=== PATIENT | male | born 1945 | race Caucasian/White ===

== ENCOUNTER 2022-08-26 09:53 | Outpatient (CLI) | payer OTHER, SELFPAY | END 2022-08-26 09:54 | disposition home or self-care (01) | LOC: ANHAUDIO 09:57 | PROVIDERS: PCP Family Medicine; Visit Provider Otolaryngology | DX: H90.3 Sensorineural hearing loss, bilateral (principal); H93.19 Tinnitus, unspecified ear | CPT/HCPCS: 92557; 92567 ==

== ENCOUNTER 2023-05-11 10:44 | Outpatient (CLI) | payer OTHER, SELFPAY ==
--- NOTE | ~2023-05-11 | MR_ITS ---
EXAMINATION: MR abdomen wo/w con DATE: 05/11/2023 11:55 INDICATION: Right-sided renal cyst TECHNIQUE: Magnetic resonance imaging (MRI) of the abdomen was performed without and with 20 mL Multi cecilia intravenous contrast. Sequences included coronal T2-weighted SS-FSE, coronal and axial FS 2D-F IESTA, axial STIR FSE, axial T2-weighted SS-FSE, axial T2-weighted FS SS-FSE, axial diffusion-weighte d SE, axial dual-echo T1-weighted FSPGR, and axial and coronal T1-weighted LAVA. Postcontrast axial T 1-weighted LAVA images were obtained in a time course. Postcontrast coronal T1-weighted LAVA images w ere obtained. COMPARISON: CT abdomen and pelvis dated 05/23/2012 FINDINGS: Heart size is normal. No pericardial or pleural effusion. Metallic magnetic field artifact associated with median sternotomy wires and mediastinal surgical clips, likely from prior coronary artery bypas s grafting. Liver, spleen, pancreas and bilateral adrenal glands are normal. Several <4 mm filling de fects on both the dependent and nondependent estrella of the otherwise normal-appearing gallbladder whic h could represent either gallstones and/or gallbladder polyps. There are multiple subcentimeter T2 hy perintense nonenhancing bilateral renal cysts the largest on the right measuring 8mm. At the anterior interpolar region of the right kidney is a heterogeneous T2 hypointense, heterogeneously mildly T1 h yperintense lesion measuring 2.9 cm maximal diameter which appears to demonstrate subtle enhancement on postcontrast images consistent with solid neoplasm such as renal cell carcinoma. Visualized portio n of the bowels are unremarkable. No pathologically enlarged abdominal or upper pelvic lymphadenopath y. Moderate lumbar spondylosis. There are few T1 hyperintense fat saturating hemangiomas in the lower thoracic spine. IMPRESSION: 1. 2.9 cm avidly enhancing mass at the anterior interpolar region of the right kidney consistent with renal cell carcinoma. Reviewed, dictated and finalized at location A. [employer]
== END 2023-05-11 10:45 ==
LOC: GOSHIMG 10:45
PROVIDERS: PCP Family Medicine; Visit Provider Urology
DX: N28.1 Cyst of kidney, acquired (principal)
CPT/HCPCS: 74183; A9577

== ENCOUNTER 2023-08-08 07:32 | Outpatient (CLI) | payer OTHER, SELFPAY ==
--- NOTE | ~2023-08-08 | MR_ITS ---
EXAMINATION: MR abdomen wo/w con DATE: 08/08/2023 08:47 INDICATION: Neoplasm of uncertain behavior of right kidney. TECHNIQUE: Magnetic resonance imaging (MRI) of the abdomen was performed without and with 20 mL Multi Petar intravenous contrast. COMPARISON: Abdomen MRI 05/11/2023, CT abdomen and pelvis 05/15/2012 FINDINGS: There is diffuse hepatic steatosis. The gallbladder is normal in size and contains a gallstone. The s pleen is normal. There is a 3 mm cyst in the head of the pancreas. The adrenal glands are normal. The re is cortical thinning of the kidneys. There are cysts in the kidneys measuring up to 8 mm on the ri ght. There is a 3.1 cm hypoenhancing mass in right kidney. There are no dilated loops of bowel. There are no pathologically enlarged lymph nodes. There is no free intraperitoneal fluid. IMPRESSION: 1. Stable 3.1 cm hypoenhancing mass in right kidney, consistent with renal cell carcinoma. 2. 3 mm cystic lesion of the pancreas. The differential diagnosis includes pseudocyst, intraductal pa pillary mucinous neoplasm (IPMN), mucinous cystic neoplasm (MCN), serous cystadenoma, and neuroendocr ine tumor. Abdomen MRI without and with contrast is recommended in 2 years. Reviewed, dictated and finalized at location A. FOUNDER AND DIRECTOR IMPRESSION: 1. Stable 3.1 cm hypoenhancing mass in right kidney, consistent with renal cell carcinoma. 2. 3 mm cystic lesion of the pancreas. The differential diagnosis includes pseu docyst, intraductal papillary mucinous neoplasm (IPMN), mucinous cystic neoplas m (MCN), serous cystadenoma, and neuroendocrine tumor. Abdomen MRI without and with contrast is recommended in 2 years.
== END 2023-08-08 07:33 | disposition home or self-care (01) ==
PROVIDERS: PCP Family Medicine; Visit Provider Urology
DX: D41.01 Neoplasm of uncertain behavior of right kidney (principal); K86.9 Disease of pancreas, unspecified
CPT/HCPCS: 74183; A9577

== ENCOUNTER 2023-08-31 08:14 | Outpatient (CLI) | payer OTHER, SELFPAY ==
--- NOTE | ~2023-08-31 | MR_ITS ---
MRI of the cervical spine Clinical History: Neck pain Technique: Axial T2-weighted and gradient images, and sagittal T1-weighted, T2-weighted, and STIR cristina ges were acquired. Findings: There is prominent bulging of the anterior and posterior margins of the C4 vertebral body, with minimal loss of height. There is probable partial fusion across the C3-C4 and C4-C5 disc spaces, with some mildly STIR hyperintense signal throughout these regions. No frankly hypointense T1 signal seen. No associated soft tissue mass evident. Remaining vertebral bodies appear essentially unremark able. No other abnormal marrow signal seen. At C2-C3, there is no disc bulge or herniation. No spinal canal stenosis, cord compression, or neural foraminal narrowing. At C3-C4, there is probable bilateral neural foraminal narrowing. There is mild canal stenosis and pr obable mild ventral cord flattening/compression at the C4 level related to the retropulsion of the C4 vertebral body. At C4-C5, there is bilateral neural foraminal narrowing. At C5-C6, there is minimal disc ossify complex. No canal stenosis or cord compression. There is proba ble mild bilateral neural foraminal narrowing. At C6-C7, there is minimal disc bulge. No spinal canal stenosis or cord compression. There is probabl e mild bilateral neural foraminal narrowing. No other paravertebral soft tissue abnormality evident. Impression: Abnormal appearance of the C4 vertebral body, with minimal loss of height and anterior and posterior convex bulging, with probable partial fusion across the C2-3-C4 and C4-C5 disc spaces. There is some mildly abnormal marrow signal throughout the vertebral bodies, though not frankly aggressive in appea hamida. This is favored to represent chronic mild compression fracture with associated disc changes, h owever an underlying more aggressive lesion is not completely excluded. Recommend repeat MR the cervi valerie spine with pre and postcontrast imaging including T1-weighted, T1 fat-sat, and T1 fat-sat postcon trast imaging to better exclude any underlying enhancing aggressive lesion. Mild canal stenosis and cord compression at the C4 level related to the retropulsion of the C4 verteb ral body. Additional multilevel mild neural foraminal narrowing, as detailed above. Reviewed, dictated and finalized at location M. N DIPPER Impression: Abnormal appearance of the C4 vertebral body, with minimal loss of height and a nterior and posterior convex bulging, with probable partial fusion across the C 2-3-C4 and C4-C5 disc spaces. There is some mildly abnormal marrow signal throu ghout the vertebral bodies, though not frankly aggressive in appearance. This i s favored to represent chronic mild compression fracture with associated disc c hanges, however an underlying more aggressive lesion is not completely excluded . Recommend repeat MR the cervical spine with pre and postcontrast imaging incl uding T1-weighted, T1 fat-sat, and T1 fat-sat postcontrast imaging to better ex clude any underlying enhancing aggressive lesion. Mild canal stenosis and cord compression at the C4 level related to the retropu lsion of the C4 vertebral body. Additional multilevel mild neural foraminal narrowing, as detailed above.
== END 2023-08-31 08:15 ==
PROVIDERS: PCP Family Medicine; Visit Provider Family Medicine
DX: M43.8X2 Other specified deforming dorsopathies, cervical region (principal); M48.02 Spinal stenosis, cervical region; R29.890 Loss of height
CPT/HCPCS: 72141

== ENCOUNTER 2023-09-12 08:43 | Outpatient (CLI) | payer OTHER, SELFPAY ==
--- NOTE | ~2023-09-12 | MR_ITS ---
EXAMINATION: MR cervical spine wo/w con DATE: 09/12/2023 10:04 INDICATION: Neck pain with abnormal findings of prior diagnostic imaging of the cervical spine. TECHNIQUE: Magnetic resonance imaging (MRI) of the cervical spine was performed without and with 20 m L Multihance intravenous contrast. Sequences included sagittal T2-weighted FSE, sagittal T2-weighted FS FSE, sagittal T1-weighted FSE, axial T2-weighted FSE, and axial T1-weighted SE. Postcontrast seque nces included sagittal T1-weighted FS FSE, and axial T1-weighted FS SE. COMPARISON: None FINDINGS: There is motion artifact on multiple sequences, greatest on the axial imaging. Again noted is circumf erential expansion of the C4 vertebral body despite minimal loss of vertebral body height. There is l oss of the low signal intensity in place both of the C4 vertebral body and involving portions of the adjacent C3 inferior and C5 superior endplates. The intervening disc spaces are also essentially abse nt. The vertebral body is filled with enhancing mass which appears to invade the adjacent C3 and C5 v ertebral bodies which would be most consistent with malignancy. Prominent low signal intensity likely bone island at the T3 vertebral body. There is suggestion of additional enhancing lesion at the righ t side of the C7 vertebral body. The posterior expansion results in moderate central canal stenosis m easuring 7 mm AP in the mid sagittal plane with mild deformation of the cord which appears slightly f lattened in the AP dimension with indentation of the ventral surface with compensatory increased with of the cord which fills the thecal space with effacement of the surrounding CSF signal. The cord sig nal appears to remain normal on the sequence is not affected by motion artifact. Aside from the expansion of the C4 vertebral body the bone alignment remains normal. Remaining verteb ral body heights are normal. Moderate disc height loss with disc bulges resulting in mild central can al stenosis at C5-C6 and C6-C7 Bone alignment is otherwise normal. IMPRESSION: 1. Enhancing expansile mass in the C4 vertebral body which has eroded across the adjacent endplates i nvading the adjacent C3 and C5 vertebral bodies with obliteration of the intervening disc spaces with out significant associated vertebral body height loss or surrounding inflammation which would strongl y favor malignancy over infection. Malignancy could be either primary such as plasmacytoma/multiple m yeloma or metastatic such as renal cell carcinoma this patient with known enhancing right renal mass suspicious for renal cell carcinoma. Recommend neurosurgical consultation. 2. Suggestion of a possible second enhancing bone lesion at the right side of the C7 vertebral body. Consider bone scan to assess for any additional bone lesions. Reviewed, dictated and finalized at location A. IMPRESSION: 1. Enhancing expansile mass in the C4 vertebral body which has eroded across th e adjacent endplates invading the adjacent C3 and C5 vertebral bodies with obli teration of the intervening disc spaces without significant associated vertebra l body height loss or surrounding inflammation which would strongly favor malig johana over infection. Malignancy could be either primary such as plasmacytoma/m ultiple myeloma or metastatic such as renal cell carcinoma this patient with kn own enhancing right renal mass suspicious for renal cell carcinoma. Recommend n eurosurgical consultation. 2. Suggestion of a possible second enhancing bone lesion at the right side of t he C7 vertebral body. Consider bone scan to assess for any additional bone lesi ons.
== END 2023-09-12 08:44 ==
LOC: GOSHIMG 08:45
PROVIDERS: PCP Family Medicine; Visit Provider Family Medicine
DX: R93.7 Abnormal findings on diagnostic imaging of other parts of musculoskeletal system (principal)
CPT/HCPCS: 72156; A9577

== ENCOUNTER 2023-10-23 09:17 | Outpatient (CLI) | payer OTHER, SELFPAY ==
--- NOTE | ~2023-10-23 | US_ITS ---
EXAMINATION:US venous doppler LE LT INDICATION:Left lower extremity pain TECHNIQUE: Multiple grayscale, color flow and Doppler images of the left lower extremity deep venous systems were obtained and reviewed. COMPARISON:No prior studies for comparison. FINDINGS: The common femoral, superficial femoral and popliteal veins demonstrate normal respiratory variation, augmentation and compressibility. Color flow is also seen within the posterior tibial, pe roneal, greater saphenous and profunda veins. IMPRESSION: 1: No lower extremity deep venous thrombosis. Reviewed, dictated and finalized at location B.
--- NOTE | ~2023-10-23 | CT_ITS ---
EXAMINATION: CTA chest PE protocol DATE: 10/23/2023 16:03 INDICATION: Other specified symptoms and signs involving the circulatory system. TECHNIQUE: Computed tomography angiography (CTA) of the chest was performed with 100 mL Omnipaque-350 intravenous contrast timed to evaluate the pulmonary arteries. Coronal maximum intensity projection 3D-reconstructions were created by the technologist. Automated exposure control and iterative reconst ruction technique were employed. The dose-length product was 847.67 mGy-cm. COMPARISON: None. FINDINGS: The lungs demonstrate mild atelectasis. There is mild elevation of left hemidiaphragm. No p leural effusion. The heart size is normal. There are coronary artery calcifications. There are change s of coronary artery bypass grafting. No pericardial effusion. There are acute pulmonary emboli in th e lower lobes. There are gallstones in the gallbladder, which is normal in size. There are changes of posterior fusion procedure involving cervicothoracic spine. There is a benign bone island in T3 vert ebral body. There is mild chronic anterior wedging of multiple vertebral bodies. IMPRESSION: 1. Acute pulmonary emboli in the lower lobes. Reviewed, dictated and finalized at location A.
[2023-10-23 10:56] LABS: D Dimer 2.38 ug/mL (<0.48)
[2023-10-23 15:54] LABS: Estimated Glomerular Filt Rate > 60
== END 2023-10-23 09:18 | disposition home or self-care (01) ==
PROVIDERS: PCP Family Medicine; Visit Provider Nurse Practitioner Family
DX: R09.89 Other specified symptoms and signs involving the circulatory and respiratory systems (principal); I26.99 Other pulmonary embolism without acute cor pulmonale; M79.89 Other specified soft tissue disorders; R23.8 Other skin changes; Z98.890 Other specified postprocedural states
CPT/HCPCS: 36415; 71275; 85380; 93971; Q9967

== ENCOUNTER 2023-10-23 16:41 | Inpatient (IN) | payer MEDICARE, OTHER, SELFPAY ==
[2023-10-23] VITALS (13 sets, daily range): BP systolic 114–134; BP diastolic 67–76; PULSE 72–85; RESP 13–22; TEMP 36.6; O2SAT 93–97
--- NOTE | ~2023-10-23 | US_ITS ---
EXAMINATION:US venous doppler LE LT INDICATION:Left lower extremity pain and swelling. TECHNIQUE: Multiple grayscale, color flow and Doppler images of the lower extremity deep venous syste ms were obtained and reviewed. COMPARISON:10/23/2023 FINDINGS: The common femoral, superficial femoral and popliteal veins demonstrate normal respiratory variation, augmentation and compressibility. Color flow is also seen within the posterior tibial, pe roneal, and profunda veins. There is superficial venous thrombosis of the left greater saphenous vein . IMPRESSION: 1: No lower extremity deep venous thrombosis. 2: Superficial venous thrombosis left greater saphenous vein. Reviewed, dictated and finalized at location B.
--- NOTE | 2023-10-23 17:58 | ECG_ITS ---
SEE SCANNED COPY FOR CONFIRMED REPORT. MTDD
--- NOTE | 2023-10-23 18:11 | ED.GENADULT ---
HPI - General Adult General Chief complaint: Recheck/Abnormal Lab/Rx Stated complaint: I have blood clots in my lungs Time Seen by Provider: 10/23/23 18:01 History of Present Illness HPI narrative: 78-year-old male presents to the emergency department for evaluation of worsening exertional shortness of breath. 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 Patient has recently restarted his aspirin and Plavix. Patient noticed he had some erythema on his left medial thigh so his convinced him he needed to be evaluated for a DVT. Patient had outpatient imaging performed which was negative for DVT of the lower extremities but was positive for bilateral lower lobe pulmonary emboli. Related Data Home Medications Medication Instructions Recorded Confirmed clopidogrel 75 mg tablet 75 mg PO DAILY 04/30/20 10/23/23 fenofibrate 160 mg tablet 160 mg PO DAILY 04/30/20 10/23/23 cetirizine 10 mg tablet (Zyrtec) 10 mg PO DAILY PRN Allergy Symptoms 10/12/20 10/23/23 finasteride 5 mg tablet 5 mg PO DAILY 05/03/21 10/23/23 rosuvastatin 40 mg tablet 40 mg PO QHS 05/03/21 10/23/23 metoprolol succinate 25 mg 37.5 mg PO BID 11/01/21 10/23/23 tablet,extended release 24 hr aspirin 81 mg tablet,delayed 81 mg PO DAILY 05/09/22 10/23/23 release (Adult Low Dose Aspirin) cholecalciferol (vitamin D3) 25 25 mcg PO DAILY 05/09/22 10/23/23 mcg (1,000 unit) capsule multivitamin 1 tablet PO DAILY 05/09/22 10/23/23 fluticasone furoate 27.5 2 spray intranasal DAILY PRN 11/07/22 10/23/23 mcg/actuation nasal Allergy Symptoms spray,suspension (Flonase Sensimist) Allergies Allergy/AdvReac Type Severity Reaction Status Date / Time isosorbide Allergy Intermediate Hives Verified 10/23/23 18:22 ticagrelor [From Brilinta] Allergy Mild Rash Verified 10/23/23 18:22 vancomycin Allergy Unknown Verified 10/23/23 18:23 Review of Systems Review of Systems: All systems reviewed & are unremarkable except as noted in HPI and below PMFSH Past Medical History Medical History BPH loc w/o ur obs/LUTS CAD in [place] artery CKD (chronic kidney disease) stage 3, GFR 30-59 ml/min Heart attack (~2000) Had another heart attack in 04/2018 Hyperlipidemia Hypertension Seasonal allergies Varicose veins of left lower extremity Vitamin D deficiency Surgical History Surgical History History of hemorrhoidectomy 05/2014 History of umbilical hernia repair 01/2009 Hx of coronary artery bypass surgery 01/2003 Stented coronary artery (~2000) 2000, 2016,2018 Family History Family History Father Cerebrovascular accident Family history of coronary artery disease Family history of congestive heart failure Family history of heart disease in male family member before age 55 Mother Carcinoma of colon Family history of coronary artery disease Grandparent Family history of glaucoma Other Family history of malignant neoplasm Social History Social History Smoking status: Former smoker Smoking end date: 06/26/72 Alcohol intake: never Substance use: never Substance use type: does not use Do You Feel Safe in your Home?: No Lack of Transportation: No Lack of Food: Never True Current Housing: I Have Housing Concerned About Future Housing: No Difficulty Paying Gas/Electric Bills: No Difficulty Paying for Meds: No Currently Unemployed: No Education: Bachelor's Degree Difficulty w/ Childcare or Family Care: No Gender identity (if verbalized by the patient): Male Spiritual care concerns: No Exam Narrative: APPEARANCE: Well appearing, no pain, no distress, well-nourished. HEAD: normocephalic, atraumatic. EYES: PERRLA/EOMI, conjunctivae clear. NOSE: Normal
[2023-10-23 18:26] LABS: Basophils Absolute Auto 0.1 K/mm3 (0.0-0.1); Eosinophils Absolute Auto 0.5 K/mm3 (0-0.3); Eosinophils Percent Auto 5.4 % (0-4.4); Hematocrit 43.4 % (42.0-52.0); Immature Granulocyte Absolute 0.14 K/mm3 (0.00-0.031); Immature Granulocyte Percent A 1.6 % (0-0.5); Lymphocytes Absolute Auto 1.46 K/mm3 (0.9-3.2); Lymphocytes Percent Auto 16.2 % (18.3-44.2); Mean Corpuscular HGB Conc 32.3 g/dl (32-36); Mean Corpuscular Hemoglobin 29.4 pg (26-34); Mean Corpuscular Volume 91.2 fl (80-100); Mean Platelet Volume 9.9 fl (7.4-10.4); Monocytes Absolute Auto 0.9 K/mm3 (0.1-0.6); Monocytes Percent Auto 10.1 % (2.6-8.5); Neutrophils Absolute Auto 5.9 K/mm3 (1.3-6.7); Neutrophils Percent Auto 65.7 % (45.5-73.1); Platelet Count Result 278 k/mm3 (150-375); Red Blood Count 4.76 M/mm3 (4.6-6.20)
[2023-10-23 18:36] LABS: Alanine Aminotransferase 19 U/L (6-50); Albumin Level 3.7 g/dL (3.5-5.1); Alkaline Phosphatase 124 U/L (38-126); Anion Gap 7 mmol/L (4-12); Aspartate Amino Transferase 33 U/L (17-59); Bilirubin,Total 1.6 mg/dL (0.2-1.3); Blood Urea Nitrogen 14 mg/dL (9-20); Calcium 9.4 mg/dL (8.4-10.2); Carbon Dioxide 23 mmol/L (22-30); Chloride 105 mmol/L (98-107); Estimated CRCL calculation 81 ml/min; Estimated Glomerular Filt Rate > 60; Glucose 108 mg/dL (65-110); Potassium 3.8 mmol/L (3.4-5.0); Sodium 135 mmol/L (137-145)
[2023-10-23 18:39] LABS: INR 1.1; Prothrombin Time 14.9 Seconds (11.1-14.7)
[2023-10-23 18:40] LABS: Partial Thromboplastin Time 36.7 Seconds (22.3-36.8)
[2023-10-23 18:48] LABS: NT Pro B Type Natriuretic Pept 759 pg/mL (19.9-100); Troponin I < 0.012 ng/mL (0.000-0.034)
[2023-10-23] MEDS: HEPARIN SODIUM 5,000 UNITS/ML VIAL 6500 UNITS IV PUSH (19:04)
[2023-10-23] MEDS: HEPARIN SOD/D5W 100 UNITS/ML 25,000 UNITS/250 ML BAG 15 UNITS IV CONT (19:06)
--- NOTE | 2023-10-23 19:13 | PC.NURSE ---
Report given to Donita MORALEZ, all questions answered
--- NOTE | 2023-10-23 21:48 | ADMGEN ---
This patient, Edwin Govea, was admitted to Medical Room 246-01. Patient/family oriented to hospital policies and general routines including ID bracelet, bed and alarms, visiting hours, pain management, procedures, bathroom and other care routines, personal items, smoking policy, room service/diet, and visiting hours. Information on how to activate the Rapid Response Team has been discussed. Patient/Family are encouraged to report perceived risks to care and to ask questions if they do not understand what they are told or what they should do.
--- NOTE | 2023-10-23 23:07 | PM.IMHP ---
H&P: HPI History of Present Illness Date/Time: 10/23/23 23:00 Chief Complaint: Chest CT showed pulmonary embolism. Narrative: This is a 78-year-old male presented to the emergency department at the instruction of his primary care provider for further evaluation after an outpatient chest CTA showed evidence of pulmonary emboli. The patient's medical history is significant for coronary artery disease, hypertension, hyperlipidemia, benign prostatic hyperplasia, and chronic kidney disease. More recently he was having issues with neck pain an MRI of the cervical spine in mid to late August showed an enhancing expansile mass in the C4 vertebral body and other findings. He is now status post C2-T2 posterior cervicothoracic fusion with left C4-C5 foraminotomy and resection of C4 mass. 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 He has been started on systemic therapy per Dr. Rafale Ruiz and he has been referred to Radiation Oncology to see if he would benefit from radiation. In any event, he was seen at his doctor's office today for evaluation of left leg discoloration and swelling and was sent for lower extremity venous Doppler ultrasounds and chest CTA. The ultrasounds were negative for DVT however chest CTA showed evidence of acute pulmonary emboli in the lower lobes for which he was sent to the ED. He denies syncope, near syncope, chest pain, pleuritic pain, palpitations, and shortness of breath. No prior history of venous thromboembolism. He was afebrile on arrival to the ED with stable vital signs. SpO2 has been in upper 90s on room air. Troponin was < 0.012 and proBNP was 759. He has been started on a heparin drip and is being admitted in this setting. Review of Systems Review of Systems: 12 systems were reviewed and are negative except for as per HPI. 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 Seasonal allergies Varicose veins of left lower extremity Vitamin D deficiency Surgical History Surgical History (Updated 10/23/23 @ 23:16 by Jinny Wall PA-C) History of coronary artery bypass graft (01/2003) History of coronary artery stent placement 2000, 2016, 2018 History of hemorrhoidectomy (05/2014) History of spinal fusion C2-T2 posterior cervicothoracic fusion with left C4-C5 foraminotomy and resection of vertebral mass. History of umbilical hernia repair (01/2009) Family History Family History Father Cerebrovascular accident Family history of coronary artery disease Family history of congestive heart failure Family history of heart disease in male family member before age 55 Mother Carcinoma of colon Family history of coronary artery disease Grandparent Family history of glaucoma Other Family history of malignant neoplasm Social History Social History (Updated 10/23/23 @ 23:17 by Jinny Wall PA-C) Social History: Surrogate medical decision maker: Shira Govea, spouse. Code status: Full code. Smoking status: Former smoker Smoking end date: 06/26/72 Alcohol intake: never Substance use: never Substance use type: does not use Do You Feel Safe in your Home?: No Lack of Transportation: No Lack of Food: Never True Current Housing: I Have Housing Concerned About Future Housing: No Difficulty Paying Gas/Electric Bills: No Difficulty Paying for Meds: No Currently Unemployed: No Education: Bachelor's Degree Difficulty w/ Childcare or Family Care: No Spiritual care concerns: No Meds Home Medications and Allergies Home Medications Medication Instructions Recorded Confirmed
[2023-10-24] VITALS (14 sets, daily range): BP systolic 110–127; BP diastolic 54–70; PULSE 66–86; RESP 16–21; TEMP 36.5–37.1; O2SAT 95–100; BMI 36.0
[2023-10-24] MEDS: METOPROLOL TARTRATE 12.5 MG TABLET PO ×3 (00:12→21:54)
[2023-10-24] MEDS: ROSUVASTATIN 10 MG TABLET 40 MG PO ×2 (00:13→21:53)
[2023-10-24] MEDS: METOPROLOL TARTRATE 25 MG TABLET PO ×3 (00:13→21:54)
[2023-10-24] MEDS: ceFAZolin 1 GM/NS 50 ML 1 GM/50 ML BAG IVPB ×3 (00:16→17:24)
[2023-10-24 01:33] LABS: Partial Thromboplastin Time 189.1 Seconds (22.3-36.8)
[2023-10-24] MEDS: DIPHENHYDRAMINE 1%/ZINC 0.1% CREAM 30 GM TUBE 1 APPLIC TOPICAL (05:02)
--- NOTE | 2023-10-24 07:58 | PM.IMPN ---
Progress Note: A&P Assessment and Plan (1) Pulmonary emboli: Code(s): I26.99 - Other pulmonary embolism without acute cor pulmonale Status: Acute Assessment and Plan: 10/24/23: CTA of the chest shows acute PE in the lower lobes Venous Doppler was negative for DVT Continue heparin drip (2) Cellulitis of left thigh: Code(s): L03.116 - Cellulitis of left lower limb Status: Acute Assessment and Plan: 10/24/23: Continue cefazolin (3) Hyperlipidemia: Qualifiers: Hyperlipidemia type: unspecified Qualified Code(s): E78.5 - Hyperlipidemia, unspecified Code(s): E78.5 - Hyperlipidemia, unspecified Status: Chronic Assessment and Plan: 10/24/23: Continue rosuvastatin (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 Rafael Ruiz, undergoing radiation treatment for stage IV renal carcinoma (5) Benign prostatic hyperplasia: Code(s): N40.0 - Benign prostatic hyperplasia without lower urinary tract symptoms Status: Chronic Assessment and Plan: 10/24/23: Of note Time Spent With Patient Time with patient: Greater than 35 minutes Subjective Date/time seen: 10/24/23 07:58 Interval history: This is a 78 year old male with a significant past medical history of stage IV renal cell carcinoma undergoing radiation with Dr. Rafael Ruiz who presented to the hospital with left leg discoloration and swelling. Work up in the hospital included a venous Dopplers which were negative for DVT. He also had a chest CTA which showed acute pulmonary emboli in the lower lobes. He was started on a heparin drip. He is currently supratherapeutic on labs this morning PTT was 189.1. Examination today patient is alert oriented x3, lying. Family is at bedside. Labs today show a white blood cell count of 10.6, PTT 83.5, bilirubin 1.7, liver enzymes and kidney function normal. He denies any fever, chills, nausea, vomiting diarrhea, pain, chest pain shortness a breath. Review of Systems Review of Systems: All systems reviewed & are unremarkable except as noted in HPI and below Constitutional: Constitutional: Reports as per HPI and Reports no additional constitutional complaints Eyes: Eyes: Reports as per HPI and Reports no additional eye complaints ENT: Reports system reviewed and no additional complaints, except as documented and Reports as per HPI Cardiovascular: Cardiovascular: Reports as per HPI and Reports no additional cardiovascular complaints Respiratory: Respiratory: Reports as per HPI and Reports no additional respiratory complaints Gastrointestinal: Gastrointestinal: Reports as per HPI and Reports no additional gastrointestinal complaints Genitourinary: Genitourinary: Reports no additional male genitourinary complaints and Reports as per HPI Musculoskeletal: Musculoskeletal: Reports no additional musculoskeletal complaints and Reports as per HPI Integumentary/Breasts: Skin/Breast: Reports system reviewed and no additional complaints, except as docu and Reports as per HPI Neurologic: Reports system reviewed and no additional complaints, except as documented and Reports as per HPI Psychiatric: Psychiatric: Reports no additional psychiatric complaints and Reports as per HPI Exam Narrative: General: In no acute distress, well nourished Head: atraumatic, no encephalopathy Eyes: EOMI, PERRLA, sclera clear ENT: moist mucous membranes, nasal passages clear Neck: supple, no JVD, no adenopathy, trachea midline Cardiac: Normal S1 and S2. No murmur, gallops or friction rubs, peripheral pulses intact. Respiratory: Lungs clear to auscultation, no adventitious lung sounds, currently on room air Gastrointestinal: soft, non-distended, non-tender, normoactive bowel sounds. : voiding without difficulty. Extremit
[2023-10-24 08:49] LABS: Basophils Absolute Auto 0.1 K/mm3 (0.0-0.1); Basophils Percent Auto 0.5 % (0.2-1.2); Eosinophils Absolute Auto 0.8 K/mm3 (0-0.3); Eosinophils Percent Auto 7.9 % (0-4.4); Hematocrit 44.4 % (42.0-52.0); Hemoglobin 14.2 g/dL (14.0-18.0); Immature Granulocyte Absolute 0.14 K/mm3 (0.00-0.031); Immature Granulocyte Percent A 1.3 % (0-0.5); Lymphocytes Absolute Auto 0.76 K/mm3 (0.9-3.2); Lymphocytes Percent Auto 7.1 % (18.3-44.2); Mean Corpuscular Volume 90.8 fl (80-100); Mean Platelet Volume 10.3 fl (7.4-10.4); Monocytes Absolute Auto 0.7 K/mm3 (0.1-0.6); Monocytes Percent Auto 6.4 % (2.6-8.5); Neutrophils Absolute Auto 8.2 K/mm3 (1.3-6.7); Neutrophils Percent Auto 76.8 % (45.5-73.1); Platelet Count Result 305 k/mm3 (150-375); Red Blood Count 4.89 M/mm3 (4.6-6.20); Red Cell Distribution Width 15.3 % (11.5-14.5); White Blood Count 10.6 K/mm3 (4.5-10.0)
[2023-10-24 09:01] LABS: Partial Thromboplastin Time 83.5 Seconds (22.3-36.8)
[2023-10-24 09:04] LABS: Alanine Aminotransferase 17 U/L (6-50); Albumin Level 3.4 g/dL (3.5-5.1); Alkaline Phosphatase 113 U/L (38-126); Anion Gap 5 mmol/L (4-12); Aspartate Amino Transferase 28 U/L (17-59); Bilirubin,Total 1.7 mg/dL (0.2-1.3); Blood Urea Nitrogen 13 mg/dL (9-20); Calcium 9.1 mg/dL (8.4-10.2); Carbon Dioxide 25 mmol/L (22-30); Chloride 107 mmol/L (98-107); Estimated CRCL calculation 81 ml/min; Estimated Glomerular Filt Rate > 60; Glucose 116 mg/dL (65-110); Potassium 3.9 mmol/L (3.4-5.0); Sodium 137 mmol/L (137-145)
[2023-10-24] MEDS: FINASTERIDE 5 MG TABLET PO (09:05)
[2023-10-24] MEDS: CHOLECALCIFEROL 1,000 UNITS TABLET 1000 UNITS PO (09:06)
[2023-10-24] MEDS: MULTIVITAMINS THERAPEUTIC TAB (*BKC) 1 TABLET PO (09:09)
[2023-10-24] MEDS: TAMSULOSIN HCL 0.4 MG CAPSULE PO (09:09)
[2023-10-24] MEDS: CLOPIDOGREL BISULFATE 75 MG TABLET PO (09:10)
[2023-10-24] MEDS: FENOFIBRATE 160 MG TABLET PO (09:10)
--- NOTE | 2023-10-24 14:28 | PCCCNOTE ---
On 10/24/23, the student, Kim Alonso, provided care and completed [facility] documentation on this patient. I have reviewed the student's documentation and agree with the findings.
[2023-10-24] MEDS: HEPARIN SOD/D5W 100 UNITS/ML 25,000 UNITS/250 ML BAG 12 UNITS IV CONT (15:43)
[2023-10-24 16:38] LABS: Partial Thromboplastin Time 78.4 Seconds (22.3-36.8)
[2023-10-24 20:15] LABS: Glucose Point of Care 124 mg/dl (65-105)
[2023-10-25] VITALS (7 sets, daily range): BP systolic 120–125; BP diastolic 52–57; PULSE 64–72; RESP 16; TEMP 36.1–36.3; O2SAT 92–96
[2023-10-25] MEDS: ceFAZolin 1 GM/NS 50 ML 1 GM/50 ML BAG IVPB ×2 (00:08→07:58)
[2023-10-25 05:11] LABS: Partial Thromboplastin Time 90.7 Seconds (22.3-36.8)
[2023-10-25] MEDS: FINASTERIDE 5 MG TABLET PO (08:01)
[2023-10-25] MEDS: TAMSULOSIN HCL 0.4 MG CAPSULE PO (08:01)
[2023-10-25] MEDS: CLOPIDOGREL BISULFATE 75 MG TABLET PO (08:01)
[2023-10-25] MEDS: FENOFIBRATE 160 MG TABLET PO (08:01)
[2023-10-25] MEDS: MULTIVITAMINS THERAPEUTIC TAB (*BKC) 1 TABLET PO (08:01)
[2023-10-25] MEDS: METOPROLOL TARTRATE 25 MG TABLET PO (08:02)
[2023-10-25] MEDS: CHOLECALCIFEROL 1,000 UNITS TABLET 1000 UNITS PO (08:02)
[2023-10-25] MEDS: METOPROLOL TARTRATE 12.5 MG TABLET PO (08:02)
[2023-10-25] MEDS: APIXABAN 5 MG TABLET 10 MG PO (10:20)
--- NOTE | 2023-10-25 12:43 | PM.DS ---
DS: Admitting Diagnosis Discharge Date 10/25/23 Admitting Diagnosis Pulmonary embolism Cellulitis of left thigh Clear cell adenocarcinoma of the right kidney BPH Coronary artery disease Hyperlipidemia DS: Discharge Diagnosis Discharge Diagnosis (1) Pulmonary emboli: Code(s): I26.99 - Other pulmonary embolism without acute cor pulmonale Status: Acute (2) Cellulitis of left thigh: Code(s): L03.116 - Cellulitis of left lower limb Status: Acute (3) Hyperlipidemia: Qualifiers: Hyperlipidemia type: unspecified Qualified Code(s): E78.5 - Hyperlipidemia, unspecified Code(s): E78.5 - Hyperlipidemia, unspecified Status: Chronic (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 Rafael Ruiz who presented to the hospital with left leg discoloration and swelling. Work up in the hospital included a venous Dopplers which were negative for DVT.? He also had a chest CTA which showed acute pulmonary emboli in the lower lobes.? He was started on a heparin drip.? He is currently supratherapeutic on labs this morning PTT was 189.1.Examination today patient is alert oriented x3, lying.? Family is at bedside.? Labs today show a white blood cell count of 10.6, PTT 83.5, bilirubin 1.7, liver enzymes and kidney function normal.? He denies any fever, chills, nausea, vomiting diarrhea, pain, chest pain shortness a breath.? 10/25/23: Patient has remained therapeutic on heparin infusion x3 lab draws. We will go ahead and transition him over to Eliquis today per PE protocol. He denies any new complaints today. He is stable for discharge today. He will need to follow up with his primary care physician in 1 week. Final diagnosis: Pulmonary embolism, superficial venous thrombosis left thigh, renal cell carcinoma Status at Discharge Cognitive/behavioral status at discharge: Alert oriented x4 Functional status at discharge: independent ambulation Overall status at discharge: patient is progressing back to baseline Time Spent with Patient Time attestation: Total time spent providing and/or coordinating discharge services: Time spent: Greater than 30 minutes Exam Narrative: General: In no acute distress, well nourished Head: atraumatic, no encephalopathy Eyes: EOMI, PERRLA, sclera clear ENT: moist mucous membranes, nasal passages clear Neck: supple, no JVD, no adenopathy, trachea midline Cardiac: Normal S1 and S2. RRR No murmur, gallops or friction rubs, peripheral pulses intact. Respiratory: Lungs clear to auscultation, no adventitious lung sounds, currently on room air Gastrointestinal: soft, non-distended, non-tender, normoactive bowel sounds. : voiding without difficulty. Extremities: moves all extremities well, no edema, good ROM, strength 5/5 Spine: C-collar in place Skin: Left inner thigh red, warm to the touch, with hardened area under the surface of the skin Neuro: Alert and oriented x4, cranial nerves intact, no neuro deficits. Psych: normal mood, normal affect, interactive DS: Data Data Completed and Pending Completed studies during hospitalization: Venous Doppler study x2, chest CTA Pending studies at discharge: None Labs on day of discharge: Labs from last 24 hours 10/25/23 10/24/23 10/24/23 04:23 20:13 16:03 APTT 90.7 H 78.4 H POC Capillary Glucose 124 H Procedures/Treatm
== END 2023-10-25 13:50 | disposition home or self-care (01) | DRG 176 ==
LOC: ANHED 18:55 → ANH2MED 20:01
PROVIDERS: Internal Medicine; Physician Assistant; Admitting Provider Internal Medicine; Emergency Provider Emergency Medicine; PCP Family Medicine; Visit Provider Nurse Practitioner Acute Care
DX: I26.99 Other pulmonary embolism without acute cor pulmonale (principal); L03.116 Cellulitis of left lower limb; C64.1 Malignant neoplasm of right kidney, except renal pelvis; I82.812 Embolism and thrombosis of superficial veins of left lower extremity; E78.5 Hyperlipidemia, unspecified; N40.0 Benign prostatic hyperplasia without lower urinary tract symptoms; I25.10 Atherosclerotic heart disease of native coronary artery without angina pectoris; I12.9 Hypertensive chronic kidney disease with stage 1 through stage 4 chronic kidney disease, or unspecified chronic kidney disease; N18.30 Chronic kidney disease, stage 3 unspecified; Z95.5 Presence of coronary angioplasty implant and graft; Z95.1 Presence of aortocoronary bypass graft; Z87.891 Personal history of nicotine dependence; Z98.1 Arthrodesis status
CPT/HCPCS: 36415; 71275; 80053; 82948; 83880; 84484; 85025; 85380; 85610; 85730; 93005; 93971; 96365; 96366; 99291; A9270; G0378; J0690; J1644; Q9967

== ENCOUNTER 2023-10-31 10:15 | Outpatient (CLI) | payer OTHER, SELFPAY ==
--- NOTE | ~2023-10-31 | MR_ITS ---
EXAMINATION: MR abdomen wo/w con DATE: 10/31/2023 12:38 INDICATION: Neoplasm of uncertain behavior of the kidney TECHNIQUE: Magnetic resonance imaging (MRI) of the abdomen was performed without and with 20 mL Multi cecilia intravenous contrast. Sequences included coronal T2-weighted SS-FSE, coronal and axial FS 2D-F IESTA, axial STIR FSE, axial T2-weighted SS-FSE, axial T2-weighted FS SS-FSE, axial diffusion-weighte d SE, axial dual-echo T1-weighted FSPGR, and axial and coronal T1-weighted LAVA. Postcontrast axial T 1-weighted LAVA images were obtained in a time course. Postcontrast coronal T1-weighted LAVA images w ere obtained. COMPARISON: MRI dated 08/08/2023 FINDINGS: Heart size is normal. No pericardial or pleural effusion. Unchanged small region of atelectasis/scarr ing at the posterior sulcus of the basilar left lower lobe which can be seen on CT dated 10/23/2023. T here are few small low signal intensity gallstones in the otherwise normal-appearing gallbladder with no dilation, gallbladder wall thickening or pericholecystic inflammatory change to suggest acute cho lecystitis. Mild diffuse hepatic steatosis with mild signal dropout on opposed phase imaging. Unchang ed 3 mm cyst at the head of the otherwise normal pancreas. Bilateral adrenal glands are normal. There are multiple bilateral small nonenhancing renal cysts including a combination of typical T2 hyperint ense simple cysts and T1 hyperintense, less T2 hyperintense proteinaceous/hemorrhagic cyst. No interv al change in a T2 hypointense, hypoenhancing mass at the right kidney consistent with renal cell carc inoma. Visualized portions of bowels are normal. No pathologically enlarged abdominal or upper pelvic lymphadenopathy. There are a few T1 hyperintense fat saturating hemangiomas in the lower thoracic sp ine. Moderate lumbar spondylosis. IMPRESSION: 1. Stable 3.1 cm hypoenhancing right renal mass consistent with renal cell carcinoma. 2. Cholelithiasis. 3. Persistent atelectasis at the posterior sulcus of the basilar left lower lobe. 4. Unchanged 3 mm cyst lesion at the head of the pancreas with differential provided on the prior alma dy. 2 year follow-up abdomen MRI with and without contrast is recommended. Reviewed, dictated and finalized at location A. IMPRESSION: 1. Stable 3.1 cm hypoenhancing right renal mass consistent with renal cell carc inoma. 2. Cholelithiasis. 3. Persistent atelectasis at the posterior sulcus of the basilar left lower lob e. 4. Unchanged 3 mm cyst lesion at the head of the pancreas with differential pro vided on the prior study. 2 year follow-up abdomen MRI with and without contras t is recommended.
== END 2023-10-31 10:16 ==
LOC: MICIMG 10:16
PROVIDERS: PCP Internal Medicine Medical Oncology; Visit Provider Urology
DX: D41.01 Neoplasm of uncertain behavior of right kidney (principal); K80.20 Calculus of gallbladder without cholecystitis without obstruction; R91.8 Other nonspecific abnormal finding of lung field; K86.2 Cyst of pancreas
CPT/HCPCS: 74183; A9577

== ENCOUNTER 2023-12-27 17:56 | Emergency (ER) | payer OTHER, SELFPAY ==
--- NOTE | ~2023-12-27 | XR_ITS ---
XR chest 2V Ordering provider: Enedelia Blair APRN History: 78 years Male with . COUGH . Comparison: September 03, 2018 FINDINGS: MEDIASTINUM: The cardiac silhouette is not enlarged. Changes in the mediastinum and sternum. LUNGS: No infiltrates, effusions or pneumothorax. Slightly prominent markings in the right lower lobe. OTHER: No free air under the diaphragm. Postoperative changes in the cervical spine. IMPRESSION: No acute cardiopulmonary pathology. Reviewed, dictated and finalized at location A.
--- NOTE | ~2023-12-27 | CT_ITS ---
CT soft tissue neck w con Ordering provider: Saray Goldstein PA-C History: 78 years Male with . dysphagia, sob, recent neck surgery . Comparison: None. Technique: CT soft tissues neck was performed with contrast. . Automated exposure control and iterat sosa reconstruction technique were employed. The dose-length product was 604.27 mGy-cm. 75 mL Omnipaqu e 350 was given IV. Findings: LOWER HEAD: The visualized brain parenchyma, optic globes/orbits and mastoids are normal. The visua lized paranasal sinuses are well aerated. SALIVARY GLANDS: Normal. THYROID: Normal. SUPRAHYOID DEEP SPACES: Normal. CAROTID ARTERIES: Normal. JUGULAR VEINS: Normal. TONSILS: Normal. ORAL CAVITY: Partially obscured by dental amalgam but normal as visualized. PHARYNX, LARYNX AND TRACHEA: Patent and normal. No prevertebral soft tissue swelling. SUPERFICIAL SOFT TISSUES: Normal. No lymphadenopathy or neck mass. THORACIC INLET/VISUALIZED UPPER CHEST: Normal. SKELETAL: Postoperative changes. Age appropriate degenerative changes. IMPRESSION: 1. No definite abnormality seen in the soft tissues of the neck. 2. Postoperative changes in the cervical spine. Reviewed, dictated and finalized at location A.
[2023-12-27 17:57] VITALS: PULSE 67; RESP 16; TEMP 36.5; O2SAT 99
--- NOTE | 2023-12-27 18:20 | ED.GENADULT ---
HPI - General Adult General Chief complaint: Unspecified <Enedelia Lo October, RECORDS CUSTODIAN - Last Filed: 12/27/23 18:32> Stated complaint: unspecified <Enedelia Lo October, RECORDS CUSTODIAN - Last Filed: 12/27/23 18:32> Time Seen by Provider: 12/27/23 18:21 <Enedelia Lo October, RECORDS CUSTODIAN - Last Filed: 12/27/23 18:32> Focused HPI: Edwin Govea is a 78 y/o male who presents [facility] reports of having an episode today where he couldn't breathe today. 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 Since being home he states he feels that his throat has been feeling worse but since its the fourth tomorrow he wanted to wait until the 5th to notify his doctor, but today he had lunch then went to have ice cream with peach chunks and he didn't feel like he could swallow the peach chunks he then got ice water, sat down and took a drink and then he felt like he could not get air in for about 45 seconds his pounded on his back and then he could breathe but felt narrowed, and he coughed because he thought there was something stuck in his throat and he felt congestion in his chest like he had aspirated the water. GENERAL: Well-appearing, well-nourished, and in no acute distress. HEAD: Normocephalic, atraumatic. CHEST: Clear to auscultation. ?No respiratory distress. HEART: Regular rate and rhythm.? NEURO: ?Alert and oriented x3. Patient screened in triage and initial orders placed.? ?Additional care and disposition to be based upon?diagnostic testing and treatment. <Enedelia Blair, RECORDS CUSTODIAN - Last Filed: 12/27/23 18:32> Source: patient <Saray Goldstein PA-C - Last Filed: 12/28/23 01:01> Mode of arrival: ambulatory <Saray Goldstein PA-C - Last Filed: 12/28/23 01:01> Limitations: no limitations <Saray Goldstein PA-C - Last Filed: 12/28/23 01:01> History of Present Illness HPI narrative: Agree w/ above HPI. Patient feels back to his baseline currently. He does feel as though something is stuck in his throat, but denies difficulty breathing this time. Denies N/V. He is able to keep down water, has not attempted to eat anything since the episode. <Saray Goldstein PA-C - Last Filed: 12/28/23 01:01> Related Data Home medications: Home Medications Medication Instructions Recorded Confirmed clopidogrel 75 mg tablet 75 mg PO DAILY 04/30/20 11/13/23 fenofibrate 160 mg tablet 160 mg PO DAILY 04/30/20 11/13/23 cetirizine 10 mg tablet (Zyrtec) 10 mg PO DAILY PRN Allergy Symptoms 10/12/20 11/13/23 finasteride 5 mg tablet 5 mg PO DAILY 05/03/21 11/13/23 rosuvastatin 40 mg tablet 40 mg PO QHS 05/03/21 11/13/23 metoprolol succinate 25 mg 37.5 mg PO BID 11/01/21 11/13/23 tablet,extended release 24 hr aspirin 81 mg tablet,delayed 81 mg PO DAILY 05/09/22 11/13/23 release (Adult Low Dose Aspirin) cholecalciferol (vitamin D3) 25 25 mcg PO DAILY 05/09/22 11/13/23 mcg (1,000 unit) capsule multivitamin 1 tablet PO DAILY 05/09/22 11/13/23 fluticasone furoate 27.5 2 spray intranasal DAILY PRN 11/07/22 11/13/23 mcg/actuation nasal Allergy Symptoms spray,suspension (Flonase Sensimist) cabozantinib 40 mg tablet mg PO 10/26/23 11/13/23 (Cabometyx) metoprolol tartrate 25 mg tablet mg PO 10/26/23 11/13/23 <Enedelia Blair, RECORDS CUSTODIAN - Last Filed: 12/27/23 18:32> Allergies/adverse reactions: Allergies Allergy/AdvReac Type Severity Reaction Status Date / Time isosorbide Allergy Intermediate Hives Verified 11/13/23 09:53 ticagrelor
[2023-12-27 20:14] VITALS: BP 154/89; PULSE 74; RESP 16; O2SAT 99
[2023-12-27 20:21] LABS: Basophils Absolute Auto 0.1 K/mm3 (0.0-0.1); Basophils Percent Auto 1.1 % (0.2-1.2); Eosinophils Absolute Auto 0.3 K/mm3 (0-0.3); Hematocrit 48.8 % (42.0-52.0); Hemoglobin 15.9 g/dL (14.0-18.0); Immature Granulocyte Absolute 0.02 K/mm3 (0.00-0.031); Immature Granulocyte Percent A 0.4 % (0-0.5); Lymphocytes Absolute Auto 0.84 K/mm3 (0.9-3.2); Lymphocytes Percent Auto 18.9 % (18.3-44.2); Mean Corpuscular HGB Conc 32.6 g/dl (32-36); Mean Corpuscular Volume 86.1 fl (80-100); Mean Platelet Volume 9.3 fl (7.4-10.4); Monocytes Absolute Auto 0.5 K/mm3 (0.1-0.6); Monocytes Percent Auto 11.2 % (2.6-8.5); Neutrophils Absolute Auto 2.7 K/mm3 (1.3-6.7); Neutrophils Percent Auto 61.4 % (45.5-73.1); Platelet Count Result 239 k/mm3 (150-375); Red Blood Count 5.67 M/mm3 (4.6-6.20); Red Cell Distribution Width 15.6 % (11.5-14.5); White Blood Count 4.5 K/mm3 (4.5-10.0)
[2023-12-27 20:31] LABS: Alanine Aminotransferase 68 U/L (6-50); Albumin Level 3.4 g/dL (3.5-5.1); Alkaline Phosphatase 107 U/L (38-126); Anion Gap 5 mmol/L (4-12); Aspartate Amino Transferase 106 U/L (17-59); Blood Urea Nitrogen 14 mg/dL (9-20); Calcium 8.9 mg/dL (8.4-10.2); Carbon Dioxide 27 mmol/L (22-30); Chloride 106 mmol/L (98-107); Estimated CRCL calculation 64 ml/min; Estimated Glomerular Filt Rate > 60; Glucose 98 mg/dL (65-110); Potassium 3.5 mmol/L (3.4-5.0); Sodium 138 mmol/L (137-145)
[2023-12-27 23:09] VITALS: BP 142/80; PULSE 72; RESP 18; O2SAT 95
[2023-12-27] MEDS: BELLADONNA ALK/PHENOB ELIX 10 ML, MAG HYDROX/ALUMINUM HYD/SIMETH 30 ML, LIDOCAINE HCL 2... PO (23:10)
[2023-12-27] MEDS: GLUCAGON FOR INJ 1 MG VIAL IM (23:10)
== END 2023-12-27 23:20 | disposition home or self-care (01) ==
PROVIDERS: Nurse Practitioner Family; Emergency Provider Physician Assistant; PCP Family Medicine
DX: R13.10 Dysphagia, unspecified (principal); Z79.82 Long term (current) use of aspirin; E78.5 Hyperlipidemia, unspecified; N18.30 Chronic kidney disease, stage 3 unspecified; I25.10 Atherosclerotic heart disease of native coronary artery without angina pectoris; I12.9 Hypertensive chronic kidney disease with stage 1 through stage 4 chronic kidney disease, or unspecified chronic kidney disease; E55.9 Vitamin D deficiency, unspecified; I25.2 Old myocardial infarction; Z87.891 Personal history of nicotine dependence
CPT/HCPCS: 36415; 70491; 71046; 80053; 85025; 96372; 99284; A9270; J1610; Q9967

== ENCOUNTER 2024-03-28 09:30 | Outpatient (RCR) | payer OTHER, SELFPAY ==
[2024-02-29 13:05] VITALS: BMI 31.4
[2024-02-29 13:06] VITALS: BMI 31.4
[2024-03-28 10:13] VITALS: BMI 31.2; BMI 31.4
== END 2024-05-27 10:56 | disposition home or self-care (01) ==
LOC: ANHDMC 09:30
PROVIDERS: PCP Family Medicine; Visit Provider Family Medicine
DX: E63.9 Nutritional deficiency, unspecified (principal); R13.10 Dysphagia, unspecified; Z93.1 Gastrostomy status; T73.0XXA Starvation, initial encounter; Z71.3 Dietary counseling and surveillance
CPT/HCPCS: 97802; 97803

== ENCOUNTER 2024-07-09 14:30 | Outpatient (RCR) | payer OTHER, SELFPAY ==
[2024-07-09 15:03] VITALS: BMI 30.3
== END 2024-09-30 10:10 | disposition home or self-care (01) ==
LOC: ANHDMC 14:30
PROVIDERS: PCP Family Medicine; Visit Provider Family Medicine
DX: R13.10 Dysphagia, unspecified (principal); E63.9 Nutritional deficiency, unspecified; T73.0XXA Starvation, initial encounter; Z93.1 Gastrostomy status; Z71.3 Dietary counseling and surveillance
CPT/HCPCS: 97802

== ENCOUNTER 2024-10-08 12:54 | Outpatient (RCR) | payer OTHER, SELFPAY ==
[2024-10-08 13:55] VITALS: BMI 28.5
== END 2024-12-23 09:09 | disposition home or self-care (01) ==
LOC: ANHDMC 12:54
PROVIDERS: PCP Family Medicine; Visit Provider Family Medicine
DX: R13.10 Dysphagia, unspecified (principal); E63.9 Nutritional deficiency, unspecified; Z93.1 Gastrostomy status; T73.0XXA Starvation, initial encounter; Z71.89 Other specified counseling; Z71.3 Dietary counseling and surveillance
CPT/HCPCS: 97803